=== PATIENT | female | born 1950 | race Caucasian/White ===

== ENCOUNTER 2025-01-12 10:10 | Emergency (ER) | payer BC, SELFPAY ==
[2025-01-12] VITALS (15 sets, daily range): BP systolic 136–164; BP diastolic 68–102; PULSE 71–88; RESP 18; TEMP 35.7; O2SAT 94–99
--- OUTSIDE RECORDS SUMMARY | 2025-01-12 10:12 | XMS_ITS | Clinical Summary ---
Author Organization [facility] Address [address] [place] [id number] Care Team Providers Care Front Desk Attendant Name Role Phone Brody Landaverde MD Primary Care Provider Allergies Active Allergy Reactions Criticality Noted Date Comments Fluticasone Propion-Salmeterol Other - Describe In Comment Field Caused lesions on tongue, had to have surgery Alendronate Nausea Only 01/15/2020 Latex Rash Nickel Rash 08/31/2006 Medications cholecalciferol (VITAMIN D) 1,000 unit capsuleIndications :Vitamin D insufficiency Take 2 capsules by mouth once daily. 0 7 Active blood-glucose meterIndications:T ype 2 diabetes mellitus with polyneuropathy (HC) Inject subcutaneous. Dispense meter, test strips, lancets covered by pt ins. E11.9 NIDDM type II - Test 1 time/day 1 Each 2 Active atorvastatin (LIPITOR) 10 mg tabletIndications: Mixed hyperlipidemia Take 1 Tablet (10 mg) by mouth once daily. 90 Tablet 3 4 Active alendronate (FOSAMAX) 70 mg tabletIndications: Type 2 diabetes mellitus with polyneuropathy (HC) TAKE ONE TABLET BY MOUTH ONCE A WEEK IN THE MORNING. TAKE ON AN EMPTY STOMACH WITH A FULL GLASS OF WATER. DO NOT LIE DOWN FOR ONE HOUR AFTER TAKING 13 Tablet 3 4 Active traZODone (DESYREL) 50 mg tabletIndications: Insomnia, idiopathic One to two tablets oral at bedtime. 180 Tablet 3 4 Active albuterol HFA (PRO-AIR; VENTOLIN; PROVENTIL) 90 mcg/actuation inhalerIndications :Wheeze INHALE ONE TO TWO PUFFS BY MOUTH EVERY 4 HOURS NEEDED FOR SHORTNESS OF BREATH 18 g 1 5 Active cyanocobalamin 250 mcg tabletIndications: B12 deficiency TAKE ONE TABLET BY MOUTH EVERY DAY 90 Tablet 1 5 Active potassium chloride 10 mEq extended-release tablet (part/cryst)Indica tions:Anemia of unknown etiology TAKE ONE TABLET BY MOUTH ONCE DAILY WITH A MEAL 90 Tablet 1 5 Active empagliflozin (JARDIANCE) 10 mg tabletIndications: Type 2 diabetes mellitus with polyneuropathy (HC) Take 1 Tablet (10 mg) by mouth once daily. 90 Tablet 3 5 Active blood sugar diagnostic (GigsTimeuch Ultra Test) stripIndications:T ype 2 diabetes mellitus with polyneuropathy (HC) USE TO TEST BLOOD GLUCOSE ONCE A DAY 100 Each 3 5 Active lancetsIndications :Type 2 diabetes mellitus with polyneuropathy (HC) As directed. Test one time per day. 100 Each 12 5 Active gabapentin (NEURONTIN) 300 mg capsuleIndications :Peripheral sensory neuropathy TAKE 4 CAPSULES (1,200 MG) BY MOUTH AT BEDTIME 360 Capsule 3 5 Active Active Problems Problem Noted Date Diagnosed Date Type 2 diabetes mellitus with polyneuropathy 06/2021 Stage 3a chronic kidney disease 07/20/2021 Depression 02/13/2020 Insomnia, idiopathic 02/13/2020 Iron deficiency anemia 01/23/2020 Osteoporosis 01/19/2018 Non morbid obesity due to excess calories 2015 Neuropathy 01/26/2015 B12 deficiency 01/07/2015 Mixed hyperlipidemia 06/26/2013 Unspecified asthma(493.90) 08/31/2006 Allergic rhinitis, cause unspecified 08/31/2006 Unspecified essential hypertension 08/31/2006 Resolved Problems Problem Noted Date Diagnosed Date Resolved Date Helicobacter pylori gastritis 01/06/2020 05/09/2024 Overview (01/06/2020): EGD 12/2019 h pylori gastritis, gastric bypass Type II or unspecified type diabetes mellitus without mention of complication, not stated as uncontrolled 10/10/2012 11/25/2024 Colon polyp 05/10/2010 06/27/2018 Overview (05/12/2010): Colonoscopy 04/2010 polyp repeat in 10 years Routine general medical exam ination at a health care facility 12/15/2008 01/23/2020 Overview (12/15/2008): Lipids - 08/01/07 - cholesterol - 161, LDL - 91, TG - 151 Dexa- none found mammo-06/06/07 Colon - none found Pap/pelvic - 05/2008, done at [facility] Thyroid- none found Hep B-none found Tetanus-1995 Diabetic-no Impaired fasting glucose 08/31/2006 Lumbago 08/31/2006 01/20/2022 Obesity, unspecified 08/31/2006 016 Encounters Date Type Department Care Team Description 01/12/2025 Nurse Triage [facility] [address] [place] [address] Brody Landaverde MD Headache 01/07/2025 Telephone [facility] [address] [place] [address] Janiya Prather RN Appointment Reminder 12/29/2024 10:20 AM CDT Nurse/Clinic Staff Only [address] [address] Questions (Help with Zio patch placement and instructions for use) 12/29/2024 Travel 12/22/2024 3:45 PM CDT Office Visit [address] [address] Brody Landaverde MD Dizziness 12/22/2024 Travel 12/22/2024 Orders Only [address] [address] Brody Landaverde MD 1 scan: (1-Ord) NFLD-EKG-12/22/24 12/22/2024 Nurse Triage [address] [address] Brody Landaverde MD Dizziness 12/08/2024 Refill [facility] [address] [place] [address] Brody Lanadverde MD Refill Request (Gabapentin) 12/04/2024 10:30 AM CDT Ancillary Procedure [facility] [address] [place] [address] 12/04/2024 Travel 11/25/2024 2:05 PM CDT Office Visit [facility] [address] [place] [address] Brody Landaverde MD Diabetes (Patient would like to know if there are other options other than metformin due to gas. ); Heart Problem (Patient states for the last week she has had chest pain starting on the right side that shoots to the left side. Patient states it happens at night.) 11/24/2024 8:20 AM CDT Ancillary Procedure [facility] [address] [place] [address] 11/24/2024 Travel 11/05/2024 Refill [facility] [address] [place] [address] Brody Landaverde MD Refill Request (Potassium Chloride) 10/22/2024 Refill [facility] [address] [place] [address] Brody Landaverde MD Refill Request (Cyanocobalamin) from Last 3 Months Immunizations Immunization Administration Dates Next Due COVID-19 vaccine (Concert Window-Bio NTGlobalLogic 30mcg/0.3mL) 12YO+ ISIAH-SUCROSE PF, V 07/20/2021 COVID-19 vaccine (Concert Window-BioNTGlobalLogic 30mcg/0.3mL) P F, MDV 09/30/2020,09/09/2020 Influenza, IIV3 (Age >=3 years) 07/06/2006 Influenza, IIV4 01/28/2016 Pneumococcal Poly,23-Valent (Pneumovax) 12/25/19 14 Tdap 12/15/2008 Family History Medical History Relation Name Comments Diabetes Brother 1 two Cancer Brother 2 Cancer Mother Diabetes Mother Cancer-breast Neg. 1 Cancer-colon Neg. 2 Heart Disease Neg. 3 Relation Name Status Comments Brother 1 Brother 2 Father Mother Neg. 1 Neg. 2 Neg. 3 Social History Tobacco Use Types Packs/Day Years Used Date Smoking Tobacco: Never Smokeless Tobacco: Never Tobacco Cessation:Counseling Given: No Alcohol Use Standard Drinks/Week Comments Not Currently 0 (1 standard drink = 0.6 oz pur e alcohol) PHQ-2 Answer Date Recorded PHQ-2 TOTAL SCORE 0 05/09/2024 Social Connections Answer Date Recorded Do you often feel lonely or isolated from those around you? 0 11/25/2024 Financial Resource Strain Answer Date R ecorded Difficulty of Paying Living Expenses 3 11/25/2024 Difficulty of Paying Living Expenses Not on file 11/25/2024 Food Insecurity Answer Date Recorded Do you worry your food will run out before you are able to buy more? 1 11/25/2024 Transportation Needs Answer Date Record ed Does lack of transportation keep you from medica l appointments? 1 11/25/2024 Does lack of transportation keep you from work, meetings or getting things that you need? 1 11/25/2024 Housing Stability Answer Date Recorded What is your housing situation today? 1 11/25/2024 Utilities Answer Date Recorded Do you have trouble paying f or utilities (for example, heat, electricity, water, phone)? 1 11/25/2024 Comments No Sex and Gender Information Value Date Recorded Sex Assigned at Not on file Legal Sex Female 5:25 AM [employer] Gender Identity Not on file Sexual Orientation Not on file Obstetrics History Last Filed Vital Signs Vital Sign Reading Time Taken Comments Blood Pressure 109/72 12/22/2024 3:24 PM CDT Pulse 92 12/22/2024 3:24 PM CDT Temperature 36.6 C (97.9 F) 08/12/2020 8:43 AM CDT Respiratory Rate 18 01/23/2020 10:40 AM CDT Oxygen Saturation 95% 12/22/2024 3:24 PM CDT Inhaled Oxygen Concentration - - Weight 69.9 kg (154 lb) 12/22/2024 3:24 PM CDT Height 155.5 cm (5' 1.22) 11/25/2024 1:51 PM CD T Body Mass Index 28.89 11/25/2024 1:51 PM CDT Plan of Treatment Upcoming Encounters Date Type Department Care Team (Late st Contact Info) Description 01/13/2025 8:00 AM CDT Appointment [facility] [address] [place] [address] 01/13/2025 9:00 AM CDT Appointment [facility] [address] [place] [address] 01/13/2025 9:30 AM CDT Appointment [facility] [address] [place] [address] 02/25/2025 8:00 AM CDT Office Visit [facility] [address] [place] [address] Brody Landaverde MD [address] [place] [address] 02/25/2025 3:00 PM CDT Office Visit [address] [phone] Tiny Brenner PA [address] [place] [address] 02/25/2025 3:30 PM CDT Office Visit [address] [address] Tiny Haynes AuD [address] [place] [address] Health Maintenance Due Date Last Done Comments Zoster (shingles) series for age 50+ (1 of 2) 2002 RSV vaccine for adults or (1 - Risk 60-74 years 1-dose series) 2012 Pneumococcal series for age 50+ (2 of 2 - PCV) 12/24/2014 12/24/2013 Tetanus booster 12/15/2018 12/15/2008, 11/19 (Declined), 12/15/2008 COVID-19 vaccine series ( season) 2024 07/20/2021, 09/30/2020, 09/09/2020 Influenza Vaccine (#1) 2025 01/28/2016, 2006 Depression screening for age 12+ 05/09/2025 05/09/2024, 11/09/2022, 11/07/2022, Additional history exists Medicare Wellness for age 65+ 05/10/2025 05/09/2024, 12/22/2019 Mammogram for age 45-75 11/24/2025 11/25/19, 09/07/2023, 09/04/2022, Additional history exists BMI (ht and wt on same day) for age 18+ 11/25/2025 11/25/2024, 05/09/2024, 11/07/2022, Additional history exists Lipids for age 45-75 05/09/2029 05/09/2024, 05/08/2023, 02/03/2022, Additional history exists Colonoscopy through age 75 01/04/203001/04, 01/05/2020, 01/05/2020, Additional history exists Hepatitis C screening for age 18-79 Completed 12/22/2019 DEXA/DXA scan for age 65+ Completed 08/18/2021, Hepatitis B series for 19+ Aged Out N o longer eligible based on patient's age to complete this topic Procedures Procedure Name Priority Date/Time Associated Diagnosis Comments EKG 12 LEAD Routine 12/23/2024 1:10 PM CDT Cardiac arrhythmia, unspecified cardiac arrhythmia type MI READING EKG - NO CHARGE, COMP ONLY Routine 12/23/2024 1:09 PM CDT Cardiac arrhythmia, unspecified cardiac arrhythmia type US ABDOMEN LIMITED RUQ Routine 12/04/2024 11:13 AM CDT Type 2 diabetes mellitus with polyneuropathy (HC) Abdominal pain, RUQ (right upper quadrant) MI READING EKG - NO CHARGE, COMP ONLY Routine 11/28/2024 4:14 PM CDT Type 2 diabetes mellitus with polyneuropathy (HC) Ventricular ectopy EKG 12 LEAD Routine 11/28/2024 4:14 PM CDT Type 2 diabetes mellitus with polyneuropathy (HC) Ventricular ectopy BASIC METABOLIC PANEL Routine 11/25/2024 1:06 PM CDT Type 2 diabetes mellitus with polyneuropathy (HC) HEMOGLOBIN A1C MONITORING (POCT) Routine 11/25/2024 1:05 PM CDT Type 2 diabetes mellitus with polyneuropathy (HC) URINE ALBUMIN TO CREATININE RATIO, RANDOM Routine 11/25/2024 1:04 PM CDT Type 2 diabetes mellitus with polyneuropathy (HC) XR MAMMO BILAT SCREENING Routine 11/24/2024 8:32 AM CDT Visit for screening mammogram LIPID PANEL W REFLEX MEASURED LDL Routine 05/09/2024 7:59 AM [employer] Type 2 diabetes mellitus with polyneuropathy (HC) XR DXA BONE DENSITY 2 SITES AXIAL AND 1 SITE PERIPHERAL Routine 08/18/2021 10:40 AM CDT Osteoporosis, unspecified osteoporosis type, unspecified pathological fracture presence SCAN-COLONOSCOPY 01/05/2020 12:0 0 AM CDT ANTI HCV Routine 12/22/2019 7:40 AM CDT Need for hepatitis C screening test from Last 3 Months or Most Recently Relevant to Health Maintenance Results * EKG 12 LEAD (12/23/2024 1:10 PM CDT) Only the most recent of2 resultswithin the time period is included. us Brody Landaverde MD EKG ORD Final Result * MI READING EKG - NO CHARGE, COMP ONLY (12/23/2024 1:09 PM CDT) Only the most recent of2 resultswithin the time period is included. us Brody Landaverde MD PB - PROVIDER READINGS Final Result * US ABDOMEN LIMITED RUQ (12/04/2024 11:13 AM CDT) Anatomical Region Laterality Modality Abdomen, LIVER Ultrasound 12/04/2024 4:25 PM CDT Impressions 12/04/2024 4:25 PM CDT Hepatic steatosis. Incidental right renal cysts. Normal gallbladder. Dictated by Neal Sellers MD @ 12/04/2024 4:25:13 PM (Electronically Signed) Narrative 12/04/2024 4:25 PM CDT For Patients: As a result of the Cures Act, medical imaging exams and procedure reports are released immediately into your electronic medical record. You may view this report before your referring provider. If you have questions, please contact your health care provider. INDICATION: Type 2 diabetes mellitus with polyneuropathy COMPARISON: CT 09/19/2022 TECHNIQUE: Real time zavala scale imaging and color Doppler analysis was performed of the right upper quadrant. FINDINGS: Liver echotexture is coarsened and increased. No intrahepatic mass. There is a normal appearance of the hepatic IVC and proximal abdominal aorta. There is no evidence of ascites. The gallbladder is of normal size and there is no evidence of intraluminal stones or sludge. The gallbladder wall measures 2 mm in thickness. The common bile duct is of normal size and measures 5 mm in diameter at the level of the vidhi hepatis. The pancreas appears normal. There is no evidence of a stone or hydronephrosis within the right kidney. Simple right renal cysts are present measuring 5.0 x 4.2 x 4.0 cm and 2.1 x 2.1 x 1.6 cm. The right kidney measures 11.3 cm in length. Procedure Note Neal Sellers MD - 12/04/2024 For Patients: As a result of the Cures Act, medical imagingexams and procedure reports are released immediately into your electronicmedical record. You may view this report before your referring provider.If you have questions, please contact your health care provider. INDICATION: Type 2 diabetes mellitus with polyneuropathy COMPARISON: CT 09/19/2022 TECHNIQUE: Real time zavala scale imaging and color Doppler analysis was performed ofthe right upper quadrant. FINDINGS: Liver echotexture is coarsened and increased. No intrahepatic mass. Thereis a normal appearance of the hepatic IVC and proximal abdominal aorta.There is no evidence of ascites. The gallbladder is of normal size andthere is no evidence of intraluminal stones or sludge. The gallbladderwall measures 2 mm in thickness. The common bile duct is of normal sizeand measures 5 mm in diameter at the level of the vidhi hepatis. Thepancreas appears normal. There is no evidence of a stone orhydronephrosis within the right kidney. Simple right renal cysts arepresent measuring 5.0 x 4.2 x 4.0 cm and 2.1 x 2.1 x 1.6 cm. The rightkidney measures 11.3 cm in length. IMPRESSION: Hepatic steatosis. Incidental right renal cysts. Normal gallbladder. Dictated by Neal Sellers MD @ 12/04/2024 4:25:13 PM (Electronically Signed) us Brody Landaverde MD US Final Result * (ABNORMAL) BASIC METABOLIC PANEL (11/25/2024 1:06 PM CDT) GLUCOSE 120(H) 65 - 99 mg/dL [facility] Comment: Fasting reference interval For someone without known diabetes, a glucose value between 100 and 125 mg/dL is consistent with prediabetes and should be confirmed with a follow-up test. UREA NITROGEN (BUN) 22 7 - 25 mg/dL [facility] CREATININE 1.08(H) 0.60 - 1.00 mg/dL [facility] EGFR 55(L) > OR = 60 mL/min/1.7 3m2 [facility] BUN/CREATININE RATIO 20 6 - 22 (calc) [facility] SODIUM 140 135 - 146 mmol/L [facility] POTASSIUM 4.3 3.5 - 5.3 mmol/L [facility] CHLORIDE 103 98 - 110 mmol/L [facility] CARBON DIOXIDE 24 20 - 32 mmol/L [facility] ELECTROLYTE BALANCE 13 7 - 17 mmol/L (calc) [facility] CALCIUM 9.7 8.6 - 10.4 mg/dL [facility] Blood BLOOD SPECIMEN / Unknown 11/25/2024 1:06 PM CDT 11/25/2024 1:07 PM CDT us Brody Landaverde MD CHEMISTRY Final Result Performing Organization Address City/[facility]/ZIP Co de Phone Number [employer] [facility] [address] [place] [address], [place] [phone] [facility] [address] [place] [address] * (ABNORMAL) HEMOGLOBIN A1C MONITORING (POCT) (11/25/2024 1:05 PM CDT) POC HEMOGLOBIN A1C 6.9(H) <6.0 % OF TOTAL HGB [facility] Comment: Any point of care results exhibiting inconsistency with the patient's clinical status should be repeated using a different testing method. Blood BLOOD SPECIMEN / Unknown 11/25/2024 1:05 PM CDT 11/25/2024 1:05 PM CDT Brody Landaverde MD CHEMISTRY Final Result Performing Organization Address City/[facility]/ZIP Co de Phone Number [facility] [address] [place] [address], [place] [phone] [facility] [address] [place] [address] * (ABNORMAL) URINE ALBUMIN TO CREATININE RATIO, RANDOM (11/25/2024 1:04 PM CDT) ALB RAND URINE 74.7 mg/L 11/25/2024 11:37 PM CDT [facility] CREATININE,URIN E 1.18 g/L 11/25/2024 11:37 PM CDT [facility] ALBUMIN TO CREATININE RATIO,RAND UR 63.3(H) <30.0 mg/g creat 11/25/2024 11:37 PM CDT [facility] Urine URINE SPECIMEN / Unknown Non-Blood / Unknown 11/25/2024 1:04 PM CDT 11/25/2024 1:04 PM CDT Narrative [facility] 11/25/2024 11:37 PM CDT If Albumin to Creatinine Ratio is elevated, consider the following: Elevations seen with incipient nephropathy associated with diabetes mellitus or hypertension. Stress, exercise,hematuria, and urinary tract infection may also produce elevated results. If clinically indicated, confirm with 24 Hour Albumin to Creatinine Ratio. Brody Landaverde MD URINE Final Result [facility] [address] [place] [address], [place] * XR MAMMO BILAT SCREENING (11/24/2024 8:32 AM CDT) Anatomical Region Laterality Modality BREASTS, Breast Left, Breast Right Bilateral Mammography Impressions 11/24/2024 3:19 PM CDT There is no radiographic evidence for malignancy. Recommend annual mammograms. MAMMOGRAM ASSESSMENT: ACR 1 Negative PATIENTS: You will also receive a letter with your examination results in an easy to read format. If you have questions about your results, please contact your referring provider. Narrative 11/24/2024 3:19 PM CDT For Patients: As a result of the Century Cures Act, medical imaging exams and procedure reports are released immediately into your electronic medical record. You may view this report before your referring provider. If you have questions, please contact your health care provider. XR MAMMO BILAT SCREENING [[id number]] CLINICAL HISTORY: This is an asymptomatic 74 y.o. patient. INDICATION FOR EXAM: Mammogram Screening. TECHNIQUE: CC and MLO views were obtained. This study was evaluated with the assistance of Computer-Aided Detection. COMPARISON FILM: Yes 09/07/23 [employer] 09/04/22 [facility] FINDINGS: The breasts are almost entirely fatty. There are no dominant masses, suspicious micro calcifications or areas of architectural distortion. Brody Landaverde MD MAMMO Final Result * (ABNORMAL) LIPID PANEL W REFLEX MEASURED LDL (05/09/2024 7:59 AM [employer]) CHOLESTEROL, TOTAL 106 <200 mg/dL [facility] HDL CHOLESTEROL 39(L) > OR = 50 mg/dL [facility] TRIGLYCERIDES 125 <150 mg/dL [facility] LDL-CHOLESTEROL 46 mg/dL (calc) [facility] Comment: Reference range: <100 Desirable range <100 mg/dL for primary prevention; <70 mg/dL for patients with CHD or diabetic patients with > or = 2 CHD risk factors. LDL-C is now calculated using the Duane calculation, which is a validated novel method providing better accuracy than the Friedewald equation in the estimation of LDL-C. Juan C GOLDSTEIN et al. KELSEY. 2013;310(19): 2530-1225 (http://education.[employer]/faq/ZTI738) CHOL/HDLC RATIO 2.7 <5.0 (calc) [facility] NON HDL CHOLESTEROL 67 <130 mg/dL (calc) [facility] Comment: For patients with diabetes plus 1 major ASCVD risk factor, treating to a non-HDL-C goal of <100 mg/dL (LDL-C of <70 mg/dL) is considered a therapeutic option. Blood BLOOD SPECIMEN / Unknown 05/09/2024 7:59 AM [employer] 05/09/2024 8:00 AM [employer] Brody Landaverde MD CHEMISTRY Final Result [employer] [facility] [address] [place] [address], [facility] [address] [place] [address] * (ABNORMAL) XR DXA BONE DENSITY 2 SITES AXIAL AND 1 SITE PERIPHERAL (08/18/2021 10:40 AM CDT) Anatomical Region Laterality Modality LUMBAR SPINE Other Impressions 08/25/2021 5:24 PM CDT Osteoporosis. RECOMMENDATIONS: The National Osteoporosis Foundation recommends pharmacologic treatment for patients with T-scores of -2.5 or less, patients with prior history of fragility fractures, or patients with 10-year probability of greater than 3% at hips or greater than 20% of suffering major osteoporotic fractures. Recommend continued optimization of calcium and vitamin D intake through dietary means and/or supplementation and regular exercise. Consider pharmacologic therapy for osteoporosis. Follow-up bone density reading in 2 years if therapy initiated to assess therapeutic efficacy. Joycelyn Kenyon PA-C [facility] 08/25/2021 Narrative 08/25/2021 5:24 PM CDT For Patients: Results are automatically released to your [facility] (Quizrr) account once available, in compliance with federal regulations. This means that you may see your results before your provider has had a chance to review them. Please allow 2-3 business days for your provider to comment on the results. XR DXA Bone Mineral Density (BMD) EXAM LOCATION: [facility] [address] [facility] [address] PATIENT NAME: Saranya Meza DATE OF : 1950 EXAM DATE: 08/18/2021 REQUESTING PROVIDER: Brody Landaverde MD GENDER AT : female HEIGHT: 5' 2.09 (07/20/2021) WEIGHT: 169 lb 3.2 oz (07/20/2021) MENOPAUSAL STATUS: Postmenopausal RACE/ETHNICITY: White RISK FACTORS: Bariatric Surgery, Cancer Treatment, Smoking (prior) and White Race CURRENT MEDICATION FOR BONE LOSS: NONE INDICATION: Follow-up of existing osteoporosis COMPARISON DATE(S): 2018 DXA scans are compared to prior studies for a patient only when the two (or more) studies were performed on the same scanner. It is not possible to compare data generated on one scanner to data from another because there are not standards in DXA equipment. This applies even if the two scanners are made by the same crown ironer. PROCEDURE: Dual-energy x-ray absorptiometry performed with routine technique. Reporting is completed in the form of a T-score. The T-score represents the standard deviation from peak bone mass based on young healthy adult. A Z-score is used for diagnosis in premenopausal women, and for men under the age of 50. FINDINGS: RESULT LUMBAR SPINE L1 - L4 BMD: 1.208 g/cm2 T-Score: + 0.1 Z-Score: + 1.4 Change from prior in 2018: Increase 1.5%. RESULTS FEMUR Left femoral neck BMD: 0.666 g/cm2 T-Score: - 2.7 Z-Score: - 1.3 Change from prior in 2018: Decrease 2.2%. Right femoral neck BMD: 0.658 g/cm2 T-Score: - 2.7 Z-Score: - 1.4 Change from prior in 2018: Decrease 7.8%. Left hip BMD: 0.754 g/cm2 T-Score: - 2.0 Z-Score: - 0.9 Change from prior in 2018: Decrease 4.2%. Right hip BMD: 0.744 g/cm2 T-Score: - 2.1 Z-Score: - 1.0 Change from prior in 2018: Decrease 3.6%. RESULT FOREARM Left Forearm distal radius BMD: 0.646 g/cm2 T-Score: - 2.6 Z-Score: - 0.9 Change from prior: None WHO criteria: Normal: T-score at or above -1 SD Osteopenia: T-score between -1.1 and -2.4 SD Osteoporosis: T-score at or below -2.5 SD us Brody Landaverde MD DEXA Final Result * SCAN-COLONOSCOPY (01/05/2020 12:00 AM CDT) us Scanner OTHER Final Result * ANTI HCV (12/22/2019 7:40 AM CDT) Pathologist [facility] HEPATITIS C ANTIBODY Non-React rokcy Non-React rocky 12/22/2019 2:27 PM CDT [facility] Comment:Antibodies to HCV no t detected; does not exclude the possibility of exposure to HCV. Blood BLOOD SPECIMEN / Unknown Butterfly / Unknown 12/22/2019 7:40 AM CDT 12/22/2019 7:44 AM CDT us Brody Landaverde MD SEND OUTS Final Result [facility] [address] [place] [address], from Last 3 Months or Most Recently Relevant to Health Maintenance Insurance ([address] [address] [place] HB ONLY MEDICARE PART A HB ONLY MEDICARE PART B HB ONLY [facility] Member Subscriber Plan / Payer (Ef fective 2023-Present) Name:Saranya Meza Relation to Subscriber:Self Name:Saranya Meza Payer ID:[id number] (NAIC) Group ID:[id number] Type:Not on file Address: MAILSTOP: [id number] [place] [address] Advance Directives Documents on File Type Date Recorded Patient Dispatcher Chief Coal Slurry Expl anation Power of Swimming Professor 02/13/2020 11:57 AM POA SIGNED 05/09/2019 Care Teams Front Desk Attendant Relationship Specialty Start Date End Date Brody Landaverde MD [address] [place] [address] [facility] - General 07/26/07
--- NOTE | 2025-01-12 12:36 | ED.GENADULT ---
HPI - General Adult General Date Seen: 01/12/25 Chief complaint: Headache/Migraine Stated complaint: Headache Time Seen by Provider: 01/12/25 12:35 History of Present Illness HPI narrative: 74-year-old female with a history of hypertension, hyperlipidemia, chronic kidney disease, type 2 diabetes, diabetic neuropathy. She is not on anticoagulants. She woke up from sleeping last Sunday or Sunday morning with a bad sharp pain located in the right occipital part of her head. It has been present every day since then. It comes and goes. There is no pattern to what makes it get better or worse. It does not seem to change with position, turning her neck, flexing or extending. She initially thought she might have injured her neck. She went to the chiropractor 2 times but has not gotten better. She says her chiropractor told her it was probably not her neck. She has not had any blurry vision. No double vision. No nausea vomiting. No anterior headache. No trouble with her ears. She does note she has a distant history of an ear infection (possibly mastoiditis? ) When she was a girl. She also has been told by her boyfriend that she has a hearing problem so she is set up for a hearing test in a couple of months. She does not notice any new trouble with her hearing. She has not had a fever. No recent fall or head injury. No focal numbness or weakness in her arms or leg. No imbalance. No trouble walking. She is concerned because her boyfriend's father a few years ago a blood clot or (or possibly a ruptured aneurysm or a tumor? ) And he also had bad occipital headache. Related Data Home Medications ?Medication ?Instructions ?Recorded ?Confirmed alendronate 70 mg tablet 70 mg PO 09/20/22 09/20/22 atorvastatin 10 mg tablet 10 mg PO DAILY 09/20/22 09/20/22 gabapentin 300 mg capsule 600 mg PO BID 09/20/22 09/20/22 metformin 500 mg tablet,extended 1,000 mg PO BID 09/20/22 09/20/22 release 24 hr omega 3-dfx-qna-fish oil 300 1 cap PO QDAY 09/20/22 09/20/22 mg-1,000 mg capsule (Fish Oil) potassium chloride 10 mEq 10 meq PO DAILY 09/20/22 09/20/22 tablet,extended release(part/cryst) simethicone 180 mg capsule (Gas-X 180 mg PO QDAY 09/20/22 09/20/22 Ultra-Strength) trazodone 50 mg tablet 50 mg PO QPM 09/20/22 09/20/22 Previous Rx's ?Medication ?Instructions ?Recorded hydrocodone 5 mg-acetaminophen 325 1 tab PO Q6H PRN pain #10 tabs 01/12/25 mg tablet Allergies Allergy/AdvReac Type Severity Reaction Status Date / Time latex Allergy Unknown Rash Verified 01/12/25 14:19 nickel Allergy Unknown Unknown Verified 01/12/25 14:19 tree nut Allergy Unknown Unknown Verified 01/12/25 14:19 PFSH PFSH Medical History (Updated 01/12/25 @ 15:57 by Ciro Chua MD) History of Helicobacter pylori infection (01/05/20) ?Z86.19 - Personal history of other infectious and parasitic diseases (ICD-10) History of asthma ?Z87.09 - Personal history of other diseases of the respiratory system (ICD-10) Mixed hyperlipidemia ?E78.2 - Mixed hyperlipidemia (ICD-10) CKD (chronic kidney disease), stage III ?N18.30 - Chronic kidney disease, stage 3 unspecified (ICD-10) Iron deficiency anemia due to chronic blood loss (12/2019) ?D50.0 - Iron deficiency anemia secondary to blood loss (chronic) (ICD-10) Essential hypertension ?I10 - Essential (primary) hypertension (ICD-10) Eczema ?L30.9 - Dermatitis, unspecified (ICD-10) Osteoporosis ?M81.0 - Age-related osteoporosis without current pathological fracture (ICD-10) Allergic rhinitis ?J30.9 - Allergic rhinitis, unspecified (ICD-10) Osteoarthritis of knees, bilateral ?M17.0 - Bilateral primary osteoarthritis of knee (ICD-10) Diabetic neuropathy ?E11.40 - Type 2 diabetes mellitus with diabetic neuropathy, unspecified (ICD-10) Diabetes mellitus, type II ?E11.9 - Type 2 diabetes mellitus without complications (ICD-10) Surgical History (Updated 09/19/22 @ 10:38 by Katherine Barrios) History of biopsy (12/28/96) ?Z98.890 - Other specified postprocedural states (ICD-10) History of gastric bypass (~1970) ?Z98.84 - Bariatric surgery status (ICD-10) History of carpal tunnel release of both wrists ?Z98.890 - Other specified postprocedural states (ICD-10) History of total abdominal hysterectomy and bilateral salpingo-oophorectomy (05/23/04) ?Z90.710 - Acquired absence of both cervix and uterus (ICD-10) ?Z90.722 - Acquired absence of ovaries, bilateral (ICD-10) ?Z90.79 - Acquired absence of other genital organ(s) (ICD-10) Social History Smoking Status: Never smoker Exam Narrative: Exam Narrative: Constitutional: Appears well-developed and well-nourished. Alert. Conversant. Non toxic. HENT: Head: Atraumatic. She is tender on the skin of the right occiput foot and behind her ear but not directly tender over the mastoid. I do not see any skin redness, rash, shingles. Nose: Nose normal. Right ear: Pinna, mastoid, canal are normal save for there is some dry cerumen in the canal. I am only able to visualize a small amount of the TM and that appears normal. No drainage or purulent debris in the canal. Left ear: Pinna, mastoid, canal, TM are normal. Small amount of cerumen. Mouth/Throat: Oral mucosa is clear and moist. no trismus. Pharynx normal. Tonsils symmetric. No tonsillar enlargement, erythema, or exudate. Eyes: Conjunctivae normal. EOM normal. Pupils equal, round, and reactive to light. No scleral icterus. Neck: Normal range of motion. No stiffness. Neck supple. No tracheal deviation present. Cardiovascular: Normal rate, regular rhythm. No gallop. No friction rub. No murmur heard. Symmetric radial artery pulses . No carotid bruits Pulmonary/Chest: Effort normal. No stridor. No respiratory distress. No wheezes. No rales. No rhonchi . No tenderness. Abdominal: Soft. Bowel sounds normal. No distension. No mass. No tenderness. No rebound. No guarding. Musculoskeletal: RUE: Normal range of motion. No tenderness. No deformity LUE: Normal range of motion. No tenderness. No deformity RLE: Normal range of motion. No edema. No tenderness. No deformity LLE: Normal range of motion. No edema. No tenderness. No deformity Lymph: No cervical adenopathy. Mental status normal. Attention normal. Alert and oriented x3. GCS 15. Memory normal. Speech fluent. Cognition normal. Cranial Nerves intact II-XII except I did not formally test gag or visual acuity. EOMI. Palate elevates symmetrically and tongue protrudes in the midline. Strength: 5/5 trapezius on the right and left 5/5 deltoid on the right and left 5/5 biceps on the right and left 5/5 triceps on the right and left 5/5 gum worker on the right and left 5/5 thumb opposition on the right and left 5/5 finger abduction on the right and left 5/5 hip flexors (L3) on the right and left 5/5 quadriceps (L4) on the right and left 5/5 tibialis anterior on the right and left 5/5 EHL (L5) on the right and left 5/5 gastrocnemius (S1) on the right and left 5/5 hamstring on the right and left Sensation intact to light touch in both upper extremities (C4-T1) Sensation intact to light touch in Both lower extremities (L4-S1). Finger to nose and coordination normal. Gait normal. Skin: Skin is warm and dry. No rash noted. No pallor. Normal capillary refill. Psychiatric: Normal mood. Normal affect. Const: Vital Signs, click to edit/add: Vital Signs - 24 hr 01/12/25 10:23 01/12/25 13:33 01/12/25 13:34 Temperature 96.2 F L Pulse Rate 85 88 Pulse Rate [Pulse Oximeter] 71 Respiratory Rate 18 Blood Pressure 164/102 H Blood Pressure [Ri ght Upper Arm] 136/68 Pulse Oximetry 98 97 97 Oxygen Delivery Me thod Room Air 01/12/25 13:45 01/12/25 14:00 01/12/25 14:01 Temperature Pulse Rate 86 73 77 Pulse Rate [Pulse Oximeter] Respiratory Rate Blood Pressure 156/90 H Blood Pressure [Ri ght Upper Arm] Pulse Oximetry 96 98 98 Oxygen Delivery Me thod 01/12/25 14:02 01/12/25 14:26 01/12/25 14:30 Temperature Pulse Rate 78 85 80 Pulse Rate [Pulse Oximeter] Respiratory Rate Blood Pressure 155/89 H Blood Pressure [Ri ght Upper Arm] Pulse Oximetry 97 99 97 Oxygen Delivery Me thod 01/12/25 14:35 01/12/25 14:45 01/12/25 15:00 Temperature Pulse Rate 80 81 82 Pulse Rate [Pulse Oximeter] Respiratory Rate Blood Pressure Blood Pressure [Ri ght Upper Arm] Pulse Oximetry 97 96 94 Oxygen Delivery Me thod 01/12/25 15:05 01/12/25 15:15 01/12/25 16:07 Temperature Pulse Rate 84 86 Pulse Rate [Pulse Oximeter] Respiratory Rate Blood Pressure 144/86 H Blood Pressure [Ri ght Upper Arm] Pulse Oximetry 95 95 Oxygen Delivery Me thod Course Course ED Course: Recheck-almost no improvement after combination of Toradol, Reglan, Benadryl, IV fluids. Discussed that in neuro imaging is reassuring. No signs of tumor, hemorrhage, vertebral artery dissection, aneurysm. After discussion of this potential remaining differential diagnosis including occipital neuralgia, cervicogenic headache, muscle spasm, atypical presentation of shingles, among others, patient would like to try a occipital nerve block. Procedure: Right occipital nerve block (including greater and lesser branches) Verbal consent Patient was position in the left lateral decubitus position. Hair was pulled back in out of the way. Landmarks were identified by palpation. Sterile preparation using alcohol. After aspiration to confirm no intravascular injection, total of 3 mL of 0.25% bupivacaine was placed into the area of the greater occipital nerve based on landmarks. We also infiltrated 3 mL of 0.25% bupivacaine based on a landmark based approach into the lesser occipital nerve. No complications were noted. Recheck at 10 minutes-patient reports resolution of her headache. She is feeling much better. Vital Signs Vital signs: Initial Vital Signs Temperature 96.2 F L 01/12/25 10:23 Temperature Source Temporal Artery Scan 01/12/25 10:23 Pulse Rate 71 01/12/25 10:23 Pulse Rhythm Regular 01/12/25 10:23 Respiratory Rate 18 01/12/25 10:23 Blood Pressure 136/68 01/12/25 10:23 Blood Pressure Mean 90 01/12/25 10:23 Blood Pressure Position Sitting 01/12/25 10:23 Pulse Oximetry 98 01/12/25 10:23 Oxygen Delivery Method Room Air 01/12/25 10:23 Vital Signs Temperature 96.2 F L 01/12/25 10:23 Pulse Rate 71 01/12/25 10:23 Respiratory Rate 18 01/12/25 10:23 Blood Pressure 136/68 01/12/25 10:23 Pulse Oximetry 98 01/12/25 10:23 Oxygen Delivery Method Room Air 01/12/25 10:23 Temperature 96.2 F L 01/12/25 10:23 Pulse Rate 86 01/12/25 15:15 Respiratory Rate 18 01/12/25 10:23 Blood Pressure 144/86 H 01/12/25 16:07 Pulse Oximetry 95 01/12/25 15:15 Oxygen Delivery Method Room Air 01/12/25 10:23 Medications Administered Medications: Discontinued Medications Generic Name Dose Route Start Last Admin Trade Name Freq PRN Reason Stop Dose Admin Diphenhydramine HCl 12.5 mg 01/12/25 12:53 01/12/25 13:24 Diphenhydramine 50 Mg/Ml Inj IVP 01/12/25 12:54 12.5 mg ONCE ONE Administration Sodium Chloride 1,000 mls @ 1,000 mls/hr 01/12/25 13:00 01/12/25 16:03 0.9 % Sodium Chloride 1000 Ml IV 01/12/25 13:59 Infused .Q1H KRISTIAN Infusion Ketorolac Tromethamine 15 mg 01/12/25 12:53 01/12/25 13:23 Ketorolac 15 Mg/Ml Inj IVP 01/12/25 12:54 15 mg ONCE ONE Administration Metoclopramide HCl 10 mg 01/12/25 12:53 01/12/25 13:27 Metoclopramide Hcl 5 Mg/Ml Inj IVP 01/12/25 12:54 10 mg ONCE ONE Administration Medical Decision Making [facility] Narrative Medical decision making narrative: Ths patient presents with a headache affecting her right posterior occipital scalp just behind her mastoid.. A broad differential diagnosis was considered including tension, migraine, analgesic rebound, occipital neuralgia, etc. Other less common but serious causes considered included meningitis, encephalitis, subarachnoid bleed, stroke, tumor, etc. CT of her head is negative for any sign of skull fracture, intracranial hemorrhage, or tumor. No evidence for mastoiditis on her CT scan. Clinical exam over here shows no sign of active ear infection, otitis externa, or mastoiditis. CT angiogram of her head neck shows no evidence for any vertebral or basilar artery dissection or occlusion, aneurysmal disease, or other vascular abnormality such as vasculitis. The patient has no signs of serious headache etiologies at this point. Patient's headache did not respond to migraine cocktail but did resolve after and a right occipital nerve block which suggest that her headache is probably related to right occipital neuralgia. Patient's questions were answered and they feel improved after above interventions in ED. Supportive outpatient management is therefore indicated. Headache precautions given for home. Discussed the need for follow-up with PCP. If headache is recurring, may need treatment with medications for occipital neuralgia. Lab Data Labs: Lab Results 01/12/25 Range/Units 13:10 WBC 5.22 (4.50-11.00) K/uL RBC 4.42 (4.00-5.20) m/uL Hgb 10.6 L (12.0-16.0) gm/dL Hct 34.5 (33.0-51.0) % MCV 78 L (80-100) fL MCH 24 L (26-34) pg MCHC 31 L (32-36) gm/dL RDW Coeff of Juan Pablo 15.7 H (11.5-15.5) % Plt Count 259 (140-440) K/uL Neut % (Auto) 66.7 (42.0-72.0) % Lymph % (Auto) 20.3 (20-44) % Iron % (Auto) 8.8 (0.0-11.0) % Eos % (Auto) 3.4 (0.0-7.0) % Baso % (Auto) 0.6 (0.0-3.0) % Neut # (Auto) 3.48 (1.7-7.0) K/uL Lymph # (Auto) 1.06 (0.90-2.90) K/uL Iron # (Auto) 0.50 (0.00-0.90) K/UL Eos # (Auto) 0.18 (0.00-0.50) K/uL Baso # (Auto) 0.03 (0.00-0.30) K/uL Abs Immat Gran (auto) 0.01 (0.00-0.30) K/uL Imm/Tot Granulo (auto) 0.2 % Sodium 140 (135-149) mmol/L Potassium 3.9 (3.6-5.1) mmol/L Chloride 105 (96-114) mmol/L Carbon Dioxide 25 (20-32) mmol/L Anion Gap 10 (7-15) mEq/L BUN 17 (7-30) mg/dL Creatinine 1.1 (0.5-1.5) mg/dL Estimated GFR 53 ml/min Glucose 126 H (60-115) mg/dL Calcium 9.9 (8.4-10.6) mg/dL Imaging Data CT scan - head: Attestation: I have reviewed the pertinent imaging results. Radiologist's impression: IMPRESSION: 1. No CT evidence of acute intracranial abnormality. CTA Head and Neck: Attestation: I have reviewed the pertinent imaging results. Radiologist's impression: IMPRESSION: Normal CT angiogram of the head and neck. Discharge Plan Discharge Clinical Impression: Headache, Occipital neuralgia of right side Patient Disposition: Home, Self-Care Condition: Stable Instructions: Acute Headache (DC) Additional Instructions: As we discussed, we are glad that your CT scans look normal. At this time we suspect the your headache is probably being caused by and irritation of the occipital nerve. This condition is called occipital neuralgia. It is very important for you to recheck with your regular doctor within 3-4 days. If you have recurring pain you can use the prescription pain medication. If you have any worsening symptoms , uncontrolled pain, fever, or any other problems, return to the ER right away. Use caution with prescription pain killers because they can cause dizziness, drowsiness, constipation, and can be addictive. Prescriptions: New hydrocodone-acetaminophen 5-325 mg tablet 1 tab PO Q6H PRN (Reason: pain) Qty: 10 0RF No Action trazodone 50 mg tablet 50 mg PO QPM atorvastatin 10 mg tablet 10 mg PO DAILY alendronate 70 mg tablet 70 mg PO metformin 500 mg tablet extended release 24 hr 1,000 mg PO BID gabapentin 300 mg capsule 600 mg PO BID potassium chloride 10 mEq tablet,ER particles/crystals 10 meq PO DAILY omega 8-oos-ljg-fish oil [Fish Oil] 300-1,000 mg capsule 1 cap PO QDAY simethicone [Gas-X Ultra-Strength] 180 mg capsule 180 mg PO QDAY Follow Up/Referrals: Brody Landaverde MD [Primary Care Provider, Family Practice] Stand Alone Forms: [facility] Info Instructions
--- NOTE | 2025-01-12 12:54 | CRLHL7_ITS ---
For Patients: As a result of the Century Cures Act, medical imaging exams and procedure reports are released immediately into your electronic medical record. You may view this report before your referring provider. If you have questions, please contact your health care provider. INDICATION: Right occipital headache, posterior headache, history of ovarian cancer TECHNIQUE: Noncontrast axial CT of the head. Coronal and sagittal reformats. Bone and soft tissue algorithms. COMPARISON: None. FINDINGS: The ventricles and cortical sulci appear age-appropriate. No midline shift or mass effect. No acute intracranial hemorrhage or extra-axial fluid collection. Hou-white matter differentiation is grossly maintained. White matter attenuation is within normal limits. Intracranial vessels are unremarkable for technique. Midline structures are unremarkable. The calvarium appears grossly intact. Hyperostosis frontalis interna. Visualized paranasal sinuses and mastoid air cells are clear. Orbits are unremarkable. IMPRESSION: 1. No CT evidence of acute intracranial abnormality. Please note that all CT scans at this facility use dose modulation, iterative reconstruction, and/or weight-based dosing when appropriate to reduce radiation dose to as low as reasonably achievable. Dictated by Emani Swan MD @ 01/12/2025 2:47:22 PM (Electronically Signed)
--- NOTE | 2025-01-12 12:54 | CT_ITS ---
Patient: HEATH ALCANTARA Facility:?[facility] Patient ID:?[id number] Site Patient ID:?[id number]. Site :?[id number] Study:?CT-Neck Angio Angio ALL IMAGING ON ANGIO HEAD-01/12/2025 2:32:08 PM Ordering Physician:Harris Tanner Final Report: DATE: 01/12/2025 CLINICAL HISTORY: Patient with headache. TECHNIQUE: Standard helical CT image acquisition through the head and neck was performed after intravenous contrast bolus enhancement. 2D and 3D MIP images for post- processing were performed and interpreted on an independent workstation and 3D images were permanently archived. COMPARISON: CT same day. FINDINGS: The origins of the great vessels from the aortic arch are patent. The origin of the right vertebral artery is patent. The origin of the left vertebral artery is patent. The common carotid arteries are patent There is no stenosis at the origin of the right internal carotid artery. There is no stenosis at the origin of the left internal carotid artery. The rest of the cervical segments of the internal carotid arteries are patent up to their intracranial segments. The intracranial segments of the internal carotid arteries are patent. The right vertebral artery is dominant. The cervical segments of the vertebral arteries are patent. The intracranial segments of the vertebral arteries are patent. The middle cerebral arteries are normal without aneurysm or proximal occlusion identified. The anterior cerebral arteries are normal without aneurysm or proximal occlusion identified. The anterior communicating artery is well visualized and appears normal. The basilar artery is normal without aneurysm or occlusion. The posterior cerebral arteries are normal without aneurysm or proximal occlusion. There is normal opacification of major intracranial venous structures. The visualized lung apices are unremarkable The thyroid gland is unremarkable. The soft tissues of the neck are unremarkable. There are degenerative changes in the cervical spine. IMPRESSION: Normal CT angiogram of the head and neck. Please note that all CT scans at this facility use dose modulation, iterative reconstruction, and/or weight-based dosing when appropriate to reduce radiation dose to as low as reasonably achievable. Dictated by Jhon Galeas MD @ 01/12/2025 2:58:08 PM Signed by:?Jhon Galeas MD @01/12/2025 2:58:08 PM (Electronic Signature)
[2025-01-12 13:18] LABS: Hematocrit 34.5 % (33.0-51.0); Hemoglobin* 10.6 gm/dL (12.0-16.0); Immature Granulocytes Abs Auto 0.01 K/uL (0.00-0.30); Immature Granulocytes Pct Auto 0.2 %; Lymphocytes Absolute Auto 1.06 K/uL (0.90-2.90); Mean Corpuscular HGB Conc 31 gm/dL (32-36); Mean Corpuscular Hemoglobin 24 pg (26-34); Mean Corpuscular Volume 78 fL (80-100); RDW Coefficient of Variation % 15.7 % (11.5-15.5); Red Blood Count 4.42 m/uL (4.00-5.20); White Blood Count* 5.22 K/uL (4.50-11.00)
[2025-01-12] MEDS: METOCLOPRAMIDE HCL 5 MG/ML INJ 10 MG IVP (13:27)
[2025-01-12 13:37] LABS: Slide Review Reflex No
[2025-01-12 13:46] LABS: Chloride* 105 mmol/L (96-114); Potassium* 3.9 mmol/L (3.6-5.1); Sodium* 140 mmol/L (135-149)
[2025-01-12 13:49] LABS: Anion Gap 10 mEq/L (7-15); Blood Urea Nitrogen* 17 mg/dL (7-30); Calcium* 9.9 mg/dL (8.4-10.6); Carbon Dioxide* 25 mmol/L (20-32); Creatinine* 1.1 mg/dL (0.5-1.5); Estimated Glomerular Filt Rate 53 ml/min; Glucose* 126 mg/dL (60-115)
== END 2025-01-12 16:09 | disposition home or self-care (01) ==
PROVIDERS: Emergency Provider Emergency Medicine; PCP Family Medicine
DX: M54.81 Occipital neuralgia (principal)
CPT/HCPCS: 64405; 36415; 70450; 70496; 70498; 80048; 85025; 96374; 96375; 99283; 99284; J1200; J1885; J2765; J7030; Q9967